=== PATIENT | male | born 1950 | race Two or more races ===

== ENCOUNTER 2021-07-19 20:33 | Emergency (ER) | payer OTHER ==
[~2021-07-19] VITALS: Ht 170.2 cm; Wt 81.6 kg
[2021-07-19 20:33] VITALS: BP 105/57
[2021-07-19] MEDS ORDERED: diphenhdrAMINE HCL 50 MG/1 ML VL IM ONE (20:45)
[2021-07-19] MEDS ORDERED: methylPREDNISolone SOD SUCC 125 MG/2 ML VL IM ONE (20:45)
== END 2021-07-20 03:08 | disposition left against medical advice (07) ==
LOC: ER 20:34
DX: R22.0 Localized swelling, mass and lump, head (principal); R11.2 Nausea with vomiting, unspecified; Z53.21 Procedure and treatment not carried out due to patient leaving prior to being seen by health care provider
CPT/HCPCS: J1200; J2930